=== PATIENT | female | born 1955 | race Caucasian/White ===

== ENCOUNTER 2016-05-15 04:48 | Day surgery (SDC) | payer MEDICARE, OTHER ==
[~2016-05-15 04:48] MED LIST: AMARYL4 PO; CALTRA600D PO; CLARIT10 PO; CRESTOR40 MG PO; FISH OIL1200 MG PO; FLONASE NAS; HYZAAR 100/25 T1 TAB PO; JANUMET1 TA1 PO; LANTUS SC; LOFIBRA160 MG PO; MAG6464 MG PO; MAGNESIUM PO; NEUR600 PO; NEXIUM40 PO; NORV5 PO; ORAZINC110 MG PO; PLAQ200B PO; ULTRAM50 PO; VITC500 PO; ZETIA PO
== END 2016-05-15 07:38 | disposition home or self-care (01) ==
LOC: SDC 04:48
PROVIDERS: Orthopaedic Surgery
PROC: 3E0R3BZ Introduction of Anesthetic Agent into Spinal Canal, Percutaneous Approach (ICD-10-PCS; 2016-05-15)
PROC: 3E0R33Z Introduction of Anti-inflammatory into Spinal Canal, Percutaneous Approach (ICD-10-PCS; principal; 2016-05-15 08:15)
DX: M54.16 Radiculopathy, lumbar region (principal); E78.00 Pure hypercholesterolemia, unspecified; I10 Essential (primary) hypertension; M19.90 Unspecified osteoarthritis, unspecified site; E11.9 Type 2 diabetes mellitus without complications; K21.9 Gastro-esophageal reflux disease without esophagitis; Z98.51 Tubal ligation status; Z98.890 Other specified postprocedural states; Z90.89 Acquired absence of other organs; Z87.891 Personal history of nicotine dependence
CPT/HCPCS: 82962; J1040; J2250; J3010; Q9967

== ENCOUNTER 2016-05-29 06:29 | Day surgery (SDC) | payer MEDICARE, OTHER | END 2016-05-29 10:15 | disposition home or self-care (01) | LOC: SDC 06:29 | PROVIDERS: Orthopaedic Surgery | PROC: 3E023BZ Introduction of Anesthetic Agent into Muscle, Percutaneous Approach (ICD-10-PCS; 2016-05-29) | PROC: 3E0233Z Introduction of Anti-inflammatory into Muscle, Percutaneous Approach (ICD-10-PCS; principal; 2016-05-29 07:30) | DX: M54.16 Radiculopathy, lumbar region (principal); E11.9 Type 2 diabetes mellitus without complications; E78.00 Pure hypercholesterolemia, unspecified; I10 Essential (primary) hypertension; M19.90 Unspecified osteoarthritis, unspecified site; K21.9 Gastro-esophageal reflux disease without esophagitis; Z98.51 Tubal ligation status; Z87.891 Personal history of nicotine dependence; Z90.89 Acquired absence of other organs; Z98.890 Other specified postprocedural states | CPT/HCPCS: 82962; J1040; J2250; J3010; Q9967 ==